=== PATIENT | male | born 1945 | race Caucasian/White ===

== ENCOUNTER 2016-09-10 23:53 | Observation (INO) | payer MEDICARE, OTHER ==
--- NOTE | ~2016-09-10 | OP ---
Record Of Operation [facility] [address] [place] [address] NAME: YUSRA LUCIANO : 41 STATUS : ADM IN [facility]#: [id number] AGE: 70 ADM/REG DATE : 09/11/16 MR#: [id number] REPORT SERV DATE: 09/11/16 DICTATED BY: HARSH TURNER DATE: 09/11/16 REPORT STATUS : Draft TRANSCRIBED BY: MODL DATE: 09/11/16 DATE OF PROCEDURE: 09/11/2016 PREOPERATIVE DIAGNOSIS: Acute cholecystitis. POSTOPERATIVE DIAGNOSIS: Acute cholecystitis. PROCEDURE: DICTATION ENDS HERE PHYLLIS/RICHARD Harsh Turner MD / [id number] CC: MD Sourav Cox M.D.
--- NOTE | ~2016-09-10 | OP ---
Record Of Operation [facility] [address] [place]. [address] NAME: YUSRA LUCIANO : 41 STATUS : ADM IN [facility]#: [id number] AGE: 70 ADM/REG DATE : 09/11/16 MR#: [id number] REPORT SERV DATE: 09/11/16 DICTATED BY: HARSH TURNER DATE: 09/11/16 REPORT STATUS : Draft TRANSCRIBED BY: MODL DATE: 09/11/16 DATE OF PROCEDURE: 09/11/2016 PREOPERATIVE DIAGNOSIS: Acute cholecystitis. POSTOPERATIVE DIAGNOSES: Acute cholecystitis and cholelithiasis. PROCEDURE: Laparoscopic cholecystectomy. CHIEF RESIDENT: David Herring M.D. ANESTHETIC: General with local. IV FLUIDS: 600 mL. ESTIMATED BLOOD LOSS: 25 mL. COMPLICATIONS: None known. COUNTS: Correct. SPECIMEN: Gallbladder. DESCRIPTION OF PROCEDURE: The patient was brought to the operating room and placed supine on the operating table. Anesthetic was administered and endotracheal intubation achieved. The abdomen was prepped draped in standard sterile fashion. A time-out was held. An incision was made through the umbilicus and a natural defect dilated to accommodate a 12 mm trocar. This was inserted and pneumoperitoneum was established. The laparoscope was inserted and intra-abdominal contents were inspected. A 10 mm trocar was placed in subxiphoid position and two 5 mm trocars were inserted in subcostal positions. The patient was placed in the standard position and the gallbladder retracted cephalad and laterally. A combination of blunt dissection and electrocautery was used to carry out this dissection. The critical view of safety was achieved. The cystic artery was triply clipped and divided. The cystic duct was triply clipped and divided. The gallbladder was taken off the hepatic wall with electrocautery and placed in an Endo pouch. Irrigation and drainage were used. There appeared to be no hemostasis or biliary leak from the hepatic wall. The gallbladder was withdrawn through the umbilical trocar site after two 5 mm trocars were withdrawn. Hemostasis was ensured. The space was passed off. The subxiphoid trocar was removed and pneumoperitoneum was released. The fascia was closed and two larger incisions with 0 Vicryl. The skin was closed superficially with 4-0 Monocryl. Sterile bandages were applied. The patient tolerated the procedure well and was extubated and transferred to the recovery room in stable condition. WG/MODL Record Of Operation [facility] [address] [place] [address] NAME: YUSRA LUCIANO : 41 STATUS : ADM IN PAT#: [id number] AGE: 70 ADM/REG DATE : 09/11/16 MR#: [id number] REPORT SERV DATE: 09/11/16 DICTATED BY: HARSH TURNER DATE: 09/11/16 REPORT STATUS : Draft TRANSCRIBED BY: MODL DATE: 09/11/16 Harsh Turner MD / [id number] CC: MD Sourav Cox M.D.
[~2016-09-10 23:53] MED LIST: ALAVERT10 MG PO; ALEVE220 MG PO; ASAB PO; BRILINTA90 MG PO; CALTRAT600 PO; CENTRUM PO; CENTRUM TAB1 TAB PO; CORDARONE PO; FISH OIL; FISH OIL PO; FOLIC ACID800 MCG PO; GINKGO BILO2 PO; GLUCOPHAGE1000 MG PO; GLUCPH PO; HALF81 PO; HCTZ12.5; HCTZ25B PO; HYDROCHLOROT25 MG PO; LIPITOR80 MG PO; LISINOPRIL40 MG PO; LOP25 PO; LOP50 PO; MAGOX4 PO; METHOC750B PO; MOMUD PO; MULTIVITAMI1 PO; NASACORTAQ NAS; NITROQUICK0.4 MG SL; NITROSTAT0.4 MG SL; NORCO1 TA1 PO; NORV25 PO; POT GLUCONAT595 M1 PO; PRESERVISION PO; PRILO PO; PRILOSEC40 MG PO; PRIN10 PO; PRIN20 PO; PROTONIX PO; RAPAFLO8 MG PO; REFRESH OPH; REFRESH TEAR0.5 % OPH; TESTOSTERON IM; TESTOSTERONE INJ IM; TESTOSTERONE INJECT IM; ULTRACET PO; VITAMIN D31000 UNIT PO; VITC500 PO; Z100 PO; ZOCOR40 PO; ZOFRAN ODT4 MG SL; ZYRTEC ALLGY10 MG PO
[2016-09-11 00:43] LABS: BASOPHILS 0.2 %; BASOPHILS ABSOLUTE 0.02 10/3/uL (0.0-0.16); EOSINOPHILS 0.8 %; EOSINOPHILS ABSOLUTE 0.08 10/3/uL (0.0-0.53); ER CBC TAT 0 Hrs 03 Mins; HEMATOCRIT 41.2 % (40.0-51.0); HEMOGLOBIN 14.2 g/dL (13.6-17.8); IMMATURE GRANULOCYTES 0.8 %; LYMPHOCYTES 15.5 %; LYMPHOCYTES ABSOLUTE 1.59 10/3/uL (0.67-4.30); MEAN CORPUS HGB CONC 34.5 g/dL (32.0-36.0); MEAN CORPUSCULAR HEMOGLOB 30.5 pg (26.0-34.0); MEAN PLATELET VOLUME 9.8 fL (9.2-13.0); MONOCYTES 7.8 %; NEUTROPHILS 74.9 %; NEUTROPHILS ABSOLUTE 7.72 10/3/uL (2.02-8.40); RBC DISTRIBUTION WIDTH 13.2 % (12.0-16.0); RED CELL COUNT 4.66 10/6/uL (4.7-6.1); WHITE BLOOD CELLS 10.3 10/3/uL (4.5-10.5)
[2016-09-11 00:46] LABS: IMMATURE GRANULOCYTES ABSOLUTE 0.08 10/3/uL (0.0-0.11); MANUAL DIFF NO %; MEAN CORPUSCULAR VOLUME 88.4 fL (80-100); PLATELET COUNT 399 10/3/uL (150-400)
[2016-09-11 01:04] LABS: BAND NEUTROPHILS 4 %; BASOPHILS 1 %; ER DIFF TAT 0 Hrs 24 Mins; LYMPHOCYTES 17 %; LYMPHOCYTES ABSOLUTE (CALC) 1.75 10/3/uL (0.67-4.30); MONOCYTES 3 %; MONOCYTES ABSOLUTE (CALC) 0.31 10/3/uL (0.21-1.20); NEUTROPHILS ABSOLUTE (CALC) 8.14 10/3/uL (2.02-8.40); PLATELET ESTIMATE ADQ (ADEQUATE); RBC MORPHOLOGY NORM (NORMAL); SEGMENTED NEUTROPHIL (0) 75 %; TOTAL NUCLEATED CELLS 100
[2016-09-11 01:37] LABS: INTERNATIONAL NORMAL RATI 1.2 UNITS (-); PARTIAL THROMBO TIME 30.1 SEC (22.5-37.2); PROTIME (NOT ORD) 14.6 SEC (12.0-14.5)
[2016-09-11 01:43] LABS: ALBUMIN 3.1 G/DL (3.5-5.0); BUN (BLOOD UREA NITROGEN) 12 MG/DL (6-23); CALCIUM, SERUM 9.1 MG/DL (8.5-10.4); CHEST PAIN PROFILE TAT 0 Hrs 22 Mins; CHLORIDE, SERUM 105 MMOL/L (96-112); CO2 (CARBON DIOXIDE) 31 MMOL/L (24-34); CREATININE 0.95 MG/DL (0.70-1.30); DIRECT BILIRUBIN 0.2 MG/DL (0.0-0.4); GFR AFRICAN AMERICAN 92 ML/MIN (>=60); GFR NON AFRICAN AMERICAN 80 ML/MIN (>=60); GLUCOSE, SERUM 107 MG/DL (60-99); INDIRECT BILIRUBIN(NOT ORDER) 0.4 MG/DL (0.1-0.9); POTASSIUM, SERUM 4.6 MMOL/L (3.5-5.3); SGOT(AST) 21 U/L (5-40); SGPT(ALT) 39 U/L (5-65); SODIUM, SERUM 141 MMOL/L (135-148); TOTAL BILIRUBIN 0.6 MG/DL (0-1.2); TROPONIN I <0.02 NG/ML (<0.05)
[2016-09-11 01:45] LABS: ALKALINE PHOSPHATASE 89 U/L (45-117); TOTAL PROTEIN 6.5 G/DL (6.0-8.5)
[2016-09-11] MEDS ORDERED: HALF81 PO (04:01)
[2016-09-11] MEDS ORDERED: FERROUS GLUC324 MG PO (04:01)
[2016-09-11] MEDS ORDERED: COLCH6 PO (04:03)
[2016-09-11] MEDS ORDERED: LOM PO (04:04)
[2016-09-11] MEDS ORDERED: PROTONIX PO (04:05)
[2016-09-11] MEDS ORDERED: PCET PO (04:06)
== END 2016-09-12 14:13 | disposition home or self-care (01) ==
LOC: ER 23:53 → 4SO 09-11 06:40
PROVIDERS: Emergency Medicine; Surgery
PROC: 0FT44ZZ Resection of Gallbladder, Percutaneous Endoscopic Approach (ICD-10-PCS; principal; 2016-09-11 14:15)
DX: K80.12 Calculus of gallbladder with acute and chronic cholecystitis without obstruction (principal); I25.2 Old myocardial infarction; I10 Essential (primary) hypertension; E78.5 Hyperlipidemia, unspecified; E11.9 Type 2 diabetes mellitus without complications; G47.33 Obstructive sleep apnea (adult) (pediatric); K21.9 Gastro-esophageal reflux disease without esophagitis; Z95.1 Presence of aortocoronary bypass graft; Z88.8 Allergy status to other drugs, medicaments and biological substances; Z79.01 Long term (current) use of anticoagulants; Z79.82 Long term (current) use of aspirin
CPT/HCPCS: 71010; 74176; 76000; 80048; 80076; 82962; 83690; 83735; 84484; 85025; 85610; 85730; 88304; 93005; 96374; 96376; 99285; A9270-GY; G0378; J0295; J1170; J2405; J2710; J3010